=== PATIENT | female | born 1990 | race African-American/Black ===

== ENCOUNTER 2017-12-15 10:14 | Outpatient (CLI) | payer OTHER ==
--- NOTE | 2017-12-15 11:10 | Non Stress Test Report ---
Non Stress Test Datetime Report Generated by CPN: 12/15/2017 11:10 DEMOGRAPHIC EGA NST: 36.4 INDICATION Indication for Study: Ordered by Provider MONITORING Monitor Explained: Monitor Explained; Test Explained; Patient Verbalized Understanding Time on Monitor: 12/14/2017 10:37 Time off Monitor: 12/15/2017 10:59 NST Duration: 1462 NST INTERVENTIONS NST Interventions: PO Hydration; Reposition Patient Physician Notified NST: Dr. Marii BABY A: [id number] BABY A Movement : Present Contraction Frequency : Irritability FHR Baseline : 135 Accelerations : 15X15 Decelerations : None Variability : Moderate 6-25bpm NST Review: Meets Criteria for Reactive NST NST Review and Verified By : CÉSAR Kowalski Results: Reactive NST REPORT Report Trigger: Send Report
== END 2017-12-15 11:09 | disposition home or self-care (01) ==
LOC: LC 10:14
PROVIDERS: ATTEND Obstetrics & Gynecology
PROC: 4A1HXCZ Monitoring of Products of Conception, Cardiac Rate, External Approach (ICD-10-PCS; principal; 2017-12-15)
DX: O47.03 False labor before 37 completed weeks of gestation, third trimester (principal); Z3A.36 36 weeks gestation of pregnancy
CPT/HCPCS: 59025